=== PATIENT | male | born 1965 | race Caucasian/White ===

== ENCOUNTER 2023-03-12 12:18 | Emergency (ER) | payer OTHER, SELFPAY ==
[2023-03-12 12:22] VITALS: BP 119/79; PULSE 60; RESP 18; TEMP 36.5; O2SAT 95
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
--- NOTE | 2023-03-12 12:30 | DI.RAD_ITS ---
Exam(s) XR FINGER RT LITTLE EXAM: XR FINGER RT LITTLE CLINICAL HISTORY: Limited motion PIP joint right little finger. TECHNIQUE: 2D digital imaging was performed of the right finger. Three views were obtained. PA/AP, oblique, and lateral views were obtained. COMPARISON: No previous for comparison. FINDINGS: BONES: There is an acute fracture through the proximal metaphysis of the proximal phalanx of the righ t little finger. The fracture is impacted with mild dorsal angulation of the distal fracture. No petra ny destructive lesion is seen. JOINTS: No dislocation present. SOFT TISSUE: Soft tissue swelling is present. IMPRESSION: Acute impacted and mildly angulated fracture involving the proximal phalanx of the right little javi ashton DATA REPOSITORY: RADIATION DOSE DELIVERED:
--- NOTE | 2023-03-12 12:30 | DI.RAD_ITS ---
Exam(s) XR FINGER LT LITTLE EXAM: XR FINGER LT LITTLE EXAM DATE/TIME: CLINICAL HISTORY: Limited motion PIP joint left little finger. TECHNIQUE: 2D digital imaging was performed of the left finger. Three views were obtained. PA/AP, oblique, and lateral views were obtained. COMPARISON: None. FINDINGS: BONES: There is an acute transverse fracture through the proximal metaphysis of the proximal phalanx. The fracture does not involve the joint space. No bony destructive lesion is seen. JOINTS: No dislocation is present. Mild degenerative changes are seen at the interphalangeal joints characterized by joint space narrowing and periarticular spurring, findings are particularly in visua lized at the PIP joint. SOFT TISSUE: Soft tissue swelling of the 5th finger is noted. IMPRESSION: Nondisplaced fracture through the proximal diaphysis of the proximal phalanx. DATA REPOSITORY: RADIATION DOSE DELIVERED:
[2023-03-12] MEDS: Ibuprofen 600 MG TAB PO (12:49)
[2023-03-12] MEDS: Acetaminophen 500 MG TAB 1000 MG PO (12:49)
[2023-03-12] MEDS: Lidocaine/Epinephri/Tetracaine Topical Gel 3 ML TP (13:15)
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
== END 2023-03-12 15:12 | disposition home or self-care (01) ==
PROVIDERS: Emergency Provider Emergency Medicine
DX: S01.91XA Laceration without foreign body of unspecified part of head, initial encounter (principal); S62.647A Nondisplaced fracture of proximal phalanx of left little finger, initial encounter for closed fracture; S62.666A Nondisplaced fracture of distal phalanx of right little finger, initial encounter for closed fracture; V19.3XXA Pedal cyclist (driver) (passenger) injured in unspecified nontraffic accident, initial encounter; Z23 Encounter for immunization
CPT/HCPCS: 12011; 29130; 90471; 99284; 73140; 99283